=== PATIENT | male | born 1965 | race Caucasian/White ===

== ENCOUNTER 2021-09-05 08:46 | Emergency (ER) | payer MEDICAID ==
[2021-09-05 09:03] VITALS: BP 148/91
--- NOTE | 2021-09-05 09:15 | ED Physician Documentation ---
PD HPI LOWER EXT INJURY - Stated complaint Stated Complaint: RT FOOT GOT CAUGHT BETWEEN TWO LOGS - Chief complaint Chief Complaint: Ext Problem - History obtained from History obtained from: Patient - History of Present Illness PD HPI LOW EXT INJURY LOCATION: Right, Foot. No: Lower leg Type of injury: Crush (foot caught between stationary and fast rolling large logs 2 weeks ago with pain and bruising/swelling. Bruising has receded but still hurting with walking and ROM. Some numbness little and 4th toes and top of foot laterally still.) Where injury occurred: Work Timing - onset: How many weeks ago (2) Timing - duration: Weeks (2) Timing - details: Abrupt onset, Still present Worsened by: Moving, Palpating, Other (walking) Associated symptoms: Numbness (dorsal foot laterally into 4th/5th toes. Normal color and cap refill.), Discolored (bruised significantly per patient, with still some residual purple coloring.). No: Weakness Similar symptoms before: Has not had sx before Recently seen: Not recently seen Review of Systems Skin: denies: Abrasion (s), Laceration (s) PD PAST MEDICAL HISTORY - Past Medical History Cardiovascular: None Endocrine/Autoimmune: None - Present Medications Home Medications: Ambulatory Orders Medication Instructions Recorded Confirmed No Known Home Medications 09/05/21 09/05/21 - Allergies Allergies/Adverse Reactions: Allergies Allergy/AdvReac Type Severity Reaction Status Date / Time cephalexin Allergy Anaphylaxis Verified 09/05/21 09:03 PD ED PE NORMAL - Vitals Vital signs reviewed: Yes - General General: Alert and oriented X 3, No acute distress, Well developed/nourished - Derm Derm: Normal color, Warm and dry - Extremities Extremities: Other (right foot with tenderness dorsolateral with residual purple coloration c/w old bruising. No current edema. oven drier tender over lateral mid foot. Not tender at malleoli. Good color and cap refill in toes. Less sensitive to touch dorsolateral foot and 4th5th toes. Able to move them. ) - Neuro Neuro: Alert and oriented X 3, No motor deficit, Normal speech Results - Vitals Vitals: Vital Signs - 24 hr 09/05/21 09:00 Temperature 36.4 C L Heart Rate 75 Respiratory 16 Rate Blood Pressure 148/91 H O2 Saturation 98 Oxygen O2 Source Room air - Rads (name of study) right foot Radiology: Prelim report reviewed (no fractures), See rad report PD MEDICAL DECISION MAKING - ED course Complexity details: reviewed results, considered differential (presume needs more time for inside blood resolution and healing. ), d/w patient Departure - Departure Disposition: 01 Home, Self Care Clinical Impression: Foot contusion Qualifiers: Encounter type: initial encounter Laterality: right Qualified Code(s): S90.31XA - Contusion of right foot, initial encounter Condition: Stable Record reviewed to determine appropriate education?: Yes Instructions: ED Contusion Foot Follow-Up: Josh Correa MD [Provider Admit Priv/Credential] - Comments: Seen on x-ray. It does sound like you had a pretty significant crush injury and there can be prolonged inflammation of the muscles and tendons related to the bruising as well. This could take even 3 or 4 weeks for healing. Reduced range of motion of the foot with the postop shoe when up and around. I would suggest some regular anti-inflammatories as well such as ibuprofen or naproxen 2 tablets 3 times a day for the next 5 to 7 days. Add Tylenol if needed for pains. Activity as tolerated. I would anticipate improvement over the next couple of weeks and resolved. You can follow-up with orthopedics if persists beyond that timeframe. Discharge Date/Time: 09/05/21 10:01
[2021-09-05] MEDS ORDERED: ACETAMINOPHEN 325 MG TABLET PO STA (09:51)
[2021-09-05] MEDS ORDERED: IBUPROFEN 600 MG TABLET PO STA (09:51)
--- NOTE | 2021-09-05 10:30 | XRAY Report ---
PROCEDURE: Foot 3 View RT INDICATIONS: crushing injury aug 23 TECHNIQUE: 3 views of the foot were acquired. COMPARISON: None FINDINGS: Bones: No fractures or dislocations. No suspicious bony lesions. Soft tissues: No tibiotalar joint effusion. Achilles tendon appears normal. IMPRESSION: Normal right foot x-ray. Reviewed by: Lenin Murphy on 09/05/2021 10:28 AM [facility] Approved by: Lenin Murphy on 09/05/2021 10:28 AM [facility] Station ID: [id number]
== END 2021-09-05 10:01 | disposition home or self-care (01) ==
LOC: ED 08:46
DX: S90.31XA Contusion of right foot, initial encounter (principal); W23.0XXA Caught, crushed, jammed, or pinched between moving objects, initial encounter; Y99.0 Civilian activity done for income or pay
CPT/HCPCS: 73630; 99282; 99283; A9270

== ENCOUNTER 2023-01-12 17:40 | Emergency (ER) | payer MEDICAID ==
[2023-01-12 17:50] VITALS: BP 150/80
--- NOTE | 2023-01-12 19:26 | ED Physician Documentation ---
History of Present Illness - Stated complaint Stated Complaint: RT ARM INJ/SWOLLEN - Chief complaint Chief Complaint: Wound - Additonal information Additional information: 57-year-old male presents emergency department for evaluation of what he believes to be an infected spider bite wound. He reports that he noticed a bite on his right forearm about 8 hours ago that he believes was due to a spider. He has subsequently picked off a black scab and now has a small amount of redness surrounding this. He states he can feel the venom spreading up his arm. States he had similar on his leg about 20 years ago that resulted in extensive in fection. He has up-to-date tetanus. No fevers. Review of Systems Constitutional: reports: Reviewed and negative Throat: reports: Reviewed and negative Cardiac: reports: Reviewed and negative Skin: reports: Lesions, Bite / sting Musculoskeletal: reports: Reviewed and negative Neurologic: reports: Reviewed and negative PD PAST MEDICAL HISTORY - Past Medical History Cardiovascular: None Endocrine/Autoimmune: None - Present Medications Home Medications: Ambulatory Orders Medication Instructions Recorded Confirmed Doxycycline Hyclate 100 mg PO BID #10 cap 01/12/23 - Allergies Allergies/Adverse Reactions: Allergies Allergy/AdvReac Type Severity Reaction Status Date / Time cephalexin Allergy Anaphylaxis Verified 01/12/23 17:49 PD ED PE NORMAL - General General: Alert and oriented X 3, No acute distress - HEENT HEENT: PERRL - Derm Derm: Normal color, Warm and dry, Other (Scab noted on the right mid forearm with a very small amount of erythema surrounding most consistent with inflammation. No induration. No drainage. No fluctuance.) Results - Vitals Vitals: Vital Signs - 24 hr 01/12/23 17:44 Temperature 36.8 C Heart Rate 59 L Respiratory 16 Rate Blood Pressure 150/80 H O2 Saturation 97 Oxygen O2 Source Room air PD Medical Decision Making - ED course Complexity details: d/w patient ED course: 57-year-old male comes the emergency department for evaluation of a spider bite wound that he reports occurred about 8 hours ago. He is concerned that it has subsequently developed an infection. He is also reporting that he has venom traveling up his forearm. On exam there is a small scab wound over the forearm and a small amount of Erythema but no surrounding induration or drainage suggestive of infection. I discussed with patient that in [facility] there are no Venema's spiders and no known spiders that typically cause necrotizing bite wounds. However he is quite insistent that he has already developed an infection. In order to allay the patient's fears we will start him on a short course of doxycycline. He reports a history of allergy to cephalosporins. I am advising a warm compress over this bite wound for 10 minutes 2-3 times a day followed by antibiotic ointment. I did discuss the usual emergent return precautions for worsening symptoms. Departure - Departure Disposition: 01 Home, Self Care Clinical Impression: Insect bite Qualifiers: Encounter type: initial encounter Site of insect bite: forearm Laterality: right Qualified Code(s): S50.861A - Insect bite (nonvenomous) of right forearm, initial encounter; W57.XXXA - Bitten or stung by nonvenomous insect and other nonvenomous arthropods, initial encounter Instructions: ED Bite Insect, ED Bite Spider Non Poisonous Prescriptions: Doxycycline Hyclate 100 mg PO BID #10 cap Comments: Susie you report that you were bitten on your right forearm by a spider today. You do have a a bite injury but it does not appear infected. However he reports similar about 20 years ago that caused extensive infection in your leg. With your concerns that you have developed an infection we will start you on doxycycline. You are to take this twice daily for the next 5 days. Doxycycline can cause a rash if you are exposed to the sun. I recommend that while you are taking this antibiotic you stay fully covered in the long long sleeves and a hat when outside. Please place a warm compress on your bite for 10 minutes 3 times a day and then apply any antibiotic ointment such as bacitracin or triple antibiotic to the bite wound. If you find that you are having concerns of infection such as increased redness, fevers, milky drainage or red streaking your arm then please return to the ER for repeat evaluation
[2023-01-12] MEDS: BACITRACIN ZINC OINT 1 PACKET TOP STA (19:34)
== END 2023-01-12 19:43 | disposition home or self-care (01) ==
LOC: ED 17:40
DX: S50.861A Insect bite (nonvenomous) of right forearm, initial encounter (principal); W57.XXXA Bitten or stung by nonvenomous insect and other nonvenomous arthropods, initial encounter
CPT/HCPCS: 99282; 99283